=== PATIENT | female | born 1995 | race Caucasian/White ===

== ENCOUNTER 2017-05-23 11:35 | Emergency (ER) | payer BC ==
--- NOTE | 2017-05-23 11:59 | EDPHY ---
H & P Stated Complaint: ear pain, sinus pressure Time Seen by Provider: 05/23/17 11:46 HPI/ROS: CHIEF COMPLAINT: Continued bilateral otalgia HISTORY OF PRESENT ILLNESS: 22-year-old immunocompetent female diagnosed 4 days ago with bilateral otitis media started on amoxicillin. She comes to the ER noting continued symptoms, fever, chills, 1 episode of vomiting this morning without abdominal pain. Bowel movements normal. No chest pain. No dyspnea. No nuchal rigidity. PRIMARY CARE PROVIDER: REVIEW OF SYSTEMS: A ten point review of systems was performed and is negative with the exception of the items mentioned in the HPI PAST MEDICAL & SURGICAL HISTORY: No pertinent medical or surgical history SOCIAL HISTORY: Nonsmoker, student PHYSICAL EXAM (Prior to examination, patient consented to physical exam, hands were washed and my usual and customary physical exam procedures followed) 1) GENERAL: Well-developed, well-nourished, alert and oriented. Appears nontoxic. 2) HEAD: Normocephalic, atraumatic 3) HEENT: Pupils equal, round, reactive to light bilaterally. Sclera anicteric. Nasopharynx, oropharynx, clear, no lesions. Dry mucous membranes ears bilaterally with bulging erythematous tympanic membrane with effusion noted. No evidence of of perforation. No evidence of otitis externa bilaterally. Bilateral mastoid nontender non boggy. 4) NECK: Full range of motion, no meningeal signs. No adenopathy 5) LUNGS: Clear auscultation bilaterally, no wheezes, no rhonchi, no retractions. 6) HEART: Regular rate and rhythm, no murmur, no heave, no gallop. 7) ABDOMEN: No guarding, no rebound, no focal tenderness, negative McBurney's, negative Zelaya's, negative Rovsing's, negative peritoneal sign, 8) MUSCULOSKELETAL: Moving all extremities, no focal areas of tenderness, no obvious trauma. No peripheral edema or discoloration. 9) BACK: No CVA tenderness, no midline vertebral tenderness, no fluctuance, no step-off, no obvious trauma, no visual or palpable abnormality. 10) SKIN: No rash, no petechiae. 11) Psychiatric: Patient is oriented X 3, there is no agitation. DIFFERENTIAL DIAGNOSIS: In no particular include but limited to otitis media, mastoiditis, influenza, first-line antibiotic therapy failure to amoxicillin for otitis media ] - Personal History LMP (Females 10-55): 22-28 Days Ago Current Tetanus/Diphtheria Vaccine: Yes Current Tetanus Diphtheria and Acellular Pertussis (TDAP): Yes - Medical/Surgical History Hx Asthma: Yes Hx Chronic Respiratory Disease: No Hx Diabetes: No Hx Cardiac Disease: No Hx Renal Disease: No Hx Cirrhosis: No Hx Alcoholism: No Hx HIV/AIDS: No Hx Splenectomy or Spleen Trauma: No Other PMH: sinus infection, asthma, labiaplasty - Social History Smoking Status: Never smoked Constitutional: Initial Vital Signs Temperature (C) 37.4 C 05/23/17 11:40 Heart Rate 135 H 05/23/17 11:40 Respiratory Rate 24 H 05/23/17 11:40 Blood Pressure 126/97 H 05/23/17 11:40 O2 Sat (%) 94 05/23/17 11:40 O2 Delivery Mode Room Air Allergies/Adverse Reactions: No Known Allergies Allergy (Unverified 05/23/17 11:38) Home Medications: Medication Instructions Recorded Amoxicillin 05/23/17 Amoxicillin/Clavulanate Pot 875 mg PO BID #14 tab 05/23/17 [Augmentin 875 mg tab] Hydrocodone/APAP 5/325 [[place] 1 tab PO Q6 PRN #7 tab 05/23/17 5/325 (RX)] Microgestin 05/23/17 Sertraline HCl 05/23/17 Medical Decision Making ED Course/Re-evaluation: 11:56 a.m.: This patient has evidence of continued bilateral otitis media, left greater than right. No evidence of perforation. No evidence of mastoiditis. She has been on amoxicillin for 4 days and notes no relief in symptoms. I recommended transitioning to Augmentin. Here in emergency department she was noted to be tachycardic, afebrile. We discussed possible concomitant influenza, in the presence of influenza vaccination. Dip urinalysis is negative for leukocytes and nitrates. 110 p.m.: Patient has been given IV hydration, heart rate currently in the 70s to 80s. She is feeling improvement with IV Toradol. I re-examined her at this point, she is smiling, appears improved. I do not think that hospitalization or emergent ENT consultation is indicated. Will transition from amoxicillin to Augmentin. We possibility of concomitant influenza . Will hold on influenza testing. Recommend 24 hour follow up with ENT and given this follow-up information. She feels comfortable with this plan. Care of patient under supervision of secondary supervising physician Dr Terry Rivera with whom I discussed case. - Data Points Laboratory Results: Laboratory Results 05/23/17 12:03 05/23/17 12:03 05/23/17 05/23/17 05/23/17 12:03 12:03 12:03 WBC 14.09 10^3/uL H 10^3/uL (3.80-9.50) RBC 4.81 10^6/uL 10^6/uL (4.18-5.33) Hgb 15.0 g/dL g/dL (12.6-16.3) Hct 42.3 % % (38.0-47.0) MCV 87.9 fL fL (81.5-99.8) MCH 31.2 pg pg (27.9-34.1) MCHC 35.5 g/dL g/dL (32.4-36.7) RDW 12.8 % % (11.5-15.2) Plt Count 262 10^3/uL 10^3/uL (150-400) MPV 9.2 fL fL (8.7-11.7) Neut % (Auto) 80.4 % H % (39.3-74.2) Lymph % (Auto) 9.6 % L % (15.0-45.0) [place] % (Auto) 8.9 % % (4.5-13.0) Eos % (Auto) 0.3 % L % (0.6-7.6) Baso % (Auto) 0.4 % % (0.3-1.7) Nucleat RBC Rel Count 0.0 % % (0.0-0.2) Absolute Neuts (auto) 11.32 10^3/uL H 10^3/uL (1.70-6.50) Absolute Lymphs (auto) 1.35 10^3/uL 10^3/uL (1.00-3.00) Absolute Monos (auto) 1.26 10^3/uL H 10^3/uL (0.30-0.80) Absolute Eos (auto) 0.04 10^3/uL 10^3/uL (0.03-0.40) Absolute Basos (auto) 0.06 10^3/uL 10^3/uL (0.02-0.10) Absolute Nucleated RBC 0.00 10^3/uL 10^3/uL (0-0.01) Immature Gran % 0.4 % % (0.0-1.1) Immature Gran # 0.06 10^3/uL 10^3/uL (0.00-0.10) Sodium 143 mEq/L mEq/L (135-145) Potassium 4.2 mEq/L mEq/L (3.5-5.2) Chloride 108 mEq/L mEq/L (97-110) Carbon Dioxide 17 mEq/l L mEq/l (22-31) Anion Gap 18 mEq/L H mEq/L (8-16) BUN 6 mg/dL L mg/dL (7-23) Creatinine 0.6 mg/dL mg/dL (0.6-1.0) Estimated GFR > 60 Glucose 85 mg/dL mg/dL (70-100) Calcium 9.5 mg/dL mg/dL (8.5-10.4) Beta HCG, Qual NEGATIVE Medications Given: Discontinued Medications Sodium Chloride (Ns) 1,000 mls @ 0 mls/hr IV ONCE ONE PRN Reason: Wide Open Stop: 05/23/17 12:09 Last Admin: 05/23/17 12:09 Dose: 1,000 mls Ketorolac Tromethamine (Toradol) 30 mg IVP EDNOW ONE Stop: 05/23/17 12:08 Last Admin: 05/23/17 12:12 Dose: 30 mg Departure - Departure Disposition: Home, Routine, Self-Care Clinical Impression: Otitis media Qualifiers: Otitis media type: unspecified Chronicity: subacute Qualified Code(s): H66.90 - Otitis media, unspecified, unspecified ear Condition: Good Instructions: Ear Infection (ED) Additional Instructions: Return to the ER immediately if you feel new or worsening symptoms. Referrals: Miguel Kwong MD [Medical Doctor] - 1-2 days without fail (Dr. Miguel Kwong is an ear nose and throat doctor) Prescriptions: Amoxicillin/Clavulanate Pot [Augmentin 875 mg tab] 875 mg PO BID #14 tab Hydrocodone/APAP 5/325 [[place] 5/325 (RX)] 1 tab PO Q6 PRN #7 tab PRN Reason: Pain, Severe
[2017-05-23] MEDS ORDERED: KETOROLAC 30 MG/1 ML SDV IVP ONE (12:07)
[2017-05-23] MEDS ORDERED: NS 1,000 ML IV ONE (12:08)
[2017-05-23 12:12] VITALS: RESP 18; O2SAT 97
[2017-05-23 12:41] VITALS: BP 119/79; PULSE 101; TEMP 99.6
[2017-05-23 12:42] LABS: PLATELET COUNT 262 10^3/uL (150-400)
== END 2017-05-23 14:10 | disposition home or self-care (01) ==
DX: H66.93 Otitis media, unspecified, bilateral (principal); J45.909 Unspecified asthma, uncomplicated; R11.10 Vomiting, unspecified
CPT/HCPCS: 96374; J1885

== ENCOUNTER 2017-05-25 10:30 | Emergency (ER) | payer BC ==
[2017-05-25 10:43] VITALS: RESP 18
--- NOTE | 2017-05-25 12:54 | EDPHY ---
H & P Time Seen by Provider: 05/25/17 12:23 HPI/ROS: CHIEF COMPLAINT: Right ear pain, sinus congestion, conjunctivitis HISTORY OF PRESENT ILLNESS: 22-year-old female presents to the emergency department with ongoing right ear pain. She was seen in the emergency department just a few days ago and diagnosed with right otitis media. She was initially taking Augmentin for 5 days in the and was changed to Ceftin. She has been taking this as prescribed. Denies fever. She does were contacts and states that she has not slept in her contacts. When she woke up this morning, she noted injection to both eyes with purulent drainage. No chest pain or difficulty breathing. No recent travel. REVIEW OF SYSTEMS: Constitutional: No fever, no chills. Eyes: Mattering bilateral eyes. No double or blurry vision. ENT: Right ear pain. No sore throat. Respiratory: No cough, no shortness of breath. Cardiac: No chest pain. Gastrointestinal: No abdominal pain, vomiting or diarrhea. Genitourinary: No dysuria. Musculoskeletal: No neck or back pain. Skin: No rashes. Neurological: No headache. Past Medical/Surgical History: Labiaplasty Social History: [employer] student Smoking Status: Never smoked Physical Exam: General Appearance: Alert, no distress. Afebrile. No apparent distress. Eyes: Pupils equal and round. Extraocular motions are all intact. Bilateral conjunctival injection noted. Small exudate. ENT: Mouth: Mucous membranes moist. A mild erythema and clear fluid noted to the right tympanic membrane. Tympanic membrane is intact with no evidence of perforation. Bony landmarks are present. Left ear is clear. Respiratory: No wheezing, rhonchi, or rales, lungs are clear to auscultation. Cardiovascular: Regular rate and rhythm. Gastrointestinal: Abdomen is soft and nontender, no masses, no rebound or guarding, bowel sounds normal. Neurological: Alert and oriented x 3, cranial nerves II through XII grossly intact Skin: Warm and dry, no rashes. Musculoskeletal: Nontender to palpate along the cervical, thoracic or lumbar spine. Neck is supple. Extremities: Full range of motion and no peripheral edema. Psychiatric: Patient is oriented X 3, there is no agitation. Constitutional: Initial Vital Signs Temperature (C) 36.5 C 05/25/17 10:40 Heart Rate 94 05/25/17 10:40 Respiratory Rate 18 01/23/18 10:40 Blood Pressure 140/77 H 05/25/17 10:40 O2 Sat (%) 96 05/25/17 10:40 O2 Delivery Mode Room Air Allergies/Adverse Reactions: No Known Allergies Allergy (Verified 05/25/17 10:39) Home Medications: Medication Instructions Recorded Cefuroxime Axetil [Ceftin (*)] 500 mg PO BID 7 Days tab 05/23/17 Microgestin 05/23/17 Sertraline HCl 05/23/17 Ofloxacin 0.3% [Ocuflox] 1 - 2 drops EACHEYE QID 7 Days btl 05/25/17 predniSONE 60 mg PO DAILY 5 Days tab 05/25/17 Medical Decision Making ED Course/Re-evaluation: 22-year-old female presents to the emergency department with bilateral conjunctival injection recheck of her right ear. I encouraged the patient to continue taking antibiotics as prescribed. She is scheduled to see ENT tomorrow. She was given prednisone for station tube dysfunction. She was also encouraged to use Afrin and Mucinex [id number]. On examination patient had conjunctivitis. She does wear contacts. She will be treated with Ocuflox. She was given ophthalmology referral for symptoms do not improved. She was instructed to return to the emergency department if she had any chest or change in symptoms or felt worse. Differential Diagnosis: Including but not limited to serous otitis, station tube dysfunction, otitis media, conjunctivitis Departure - Departure Disposition: Home, Routine, Self-Care Clinical Impression: Sinusitis Qualifiers: Sinusitis location: maxillary Chronicity: acute Recurrence: non-recurrent Qualified Code(s): J01.00 - Acute maxillary sinusitis, unspecified Conjunctivitis Qualifiers: Conjunctivitis type: acute Acute conjunctivitis type: bacterial Laterality: bilateral Qualified Code(s): H10.33 - Unspecified acute conjunctivitis, bilateral Right acute serous otitis media Qualifiers: Recurrence: not specified as recurrent Qualified Code(s): H65.01 - Acute serous otitis media, right ear Condition: Good Instructions: Sinusitis (ED), Serous Otitis Media (ED), Conjunctivitis (ED) Additional Instructions: Continue antibiotics as prescribed. Ocuflox ophthalmic drops 2 drops 4 times daily to both eyes for 1 week. Do not wear contacts for 1 week and until your infection has cleared. Mucinex, guaifenesin, 600-1200 mg twice daily with a large amount of liquids. Afrin nasal spray as discussed for 2-3 days. Prednisone daily x5 days. You on, wiggle jaw, sometimes chewing gum can also help. Ibuprofen 600 mg every 8 hr as needed for pain. Keep scheduled appointment with ENT tomorrow. Referrals: John Amaral MD [Medical Doctor] - 1-2 days without fail (Industrial Sales Engineer on- call) Kevin Cardona MD [Medical Doctor] - As per Instructions (ENT on-call) Prescriptions: Ofloxacin 0.3% [Ocuflox] 1 - 2 drops EACHEYE QID 7 Days btl predniSONE 60 mg PO DAILY 5 Days tab
[2017-05-25 13:05] VITALS: BP 135/78; PULSE 78; TEMP 98.4; O2SAT 95
== END 2017-05-25 13:00 | disposition home or self-care (01) ==
DX: H65.01 Acute serous otitis media, right ear (principal); J01.00 Acute maxillary sinusitis, unspecified; H10.33 Unspecified acute conjunctivitis, bilateral

== ENCOUNTER 2018-07-16 11:05 | Emergency (ER) | payer BC ==
[2018-07-16] MEDS ORDERED: LIDOCAINE 2% VISCOUS 15 ML UDCUP PO ONE (11:44)
[2018-07-16] MEDS ORDERED: MAG HYDROX/AL HYDROX/SIMETH 30 ML UDCUP PO ONE (11:44)
[2018-07-16] MEDS ORDERED: FAMOTIDINE 20 MG TAB PO ONE (11:44)
[2018-07-16] MEDS ORDERED: HYOSCYAMINE SULFATE 0.125 MG TAB PO ONE (11:44)
--- NOTE | 2018-07-16 11:44 | EDPHY ---
H & P Stated Complaint: upper abd pain x 2 hours nausea - Personal History LMP (Females 10-55): 1-7 Days Ago - Medical/Surgical History Hx Asthma: Yes Hx Chronic Respiratory Disease: No Hx Diabetes: No Hx Cardiac Disease: No Hx Renal Disease: No Hx Cirrhosis: No Hx Alcoholism: No Hx HIV/AIDS: No Hx Splenectomy or Spleen Trauma: No Other PMH: sinus infection, asthma, bipolar - Social History Smoking Status: Never smoked Time Seen by Provider: 07/16/18 11:35 HPI/ROS: CHIEF COMPLAINT: Epigastric pain since this morning HISTORY OF PRESENT ILLNESS: 23-year-old female generally healthy complaining of epigastric pain which she woke with this morning. Last night she had a few drinks of alcohol. No nausea or vomiting last night or this morning however she notes epigastric pain without radiation. No radiation to her back. No diarrhea. No dyspnea. No chest pain. No history of chronic NSAID use. No melena or hematochezia PRIMARY CARE PROVIDER: REVIEW OF SYSTEMS: 10 systems reviewed and negative with the exception of the elements mentioned in the history of present illness PAST MEDICAL & SURGICAL HISTORY: Bipolar disorder SOCIAL HISTORY:Few drinks of alcohol last evening PHYSICAL EXAM (Prior to examination, patient consented to physical exam, hands were washed and my usual and customary physical exam procedures followed) 1) GENERAL: Well-developed, well-nourished, alert and oriented. Appears to be in no acute distress. 2) HEAD: Normocephalic, atraumatic 3) HEENT: Pupils equal, round, reactive to light bilaterally. Sclera anicteric. Nasopharynx, oropharynx, clear, no lesions. Moist Mucous membranes. 4) NECK: Full range of motion, no meningeal signs. 5) LUNGS: Clear auscultation bilaterally, no wheezes, no rhonchi, no retractions. 6) HEART: Regular rate and rhythm, no murmur, no heave, no gallop. 7) ABDOMEN: No guarding, tender to palpation epigastrium. No palpable or pulsatile mass. Negative McBurney's, negative Zelaya's, negative Rovsing's, negative peritoneal sign, 8) MUSCULOSKELETAL: Moving all extremities, no focal areas of tenderness, no obvious trauma. No peripheral edema or discoloration. 9) BACK: No CVA tenderness, no midline vertebral tenderness, no fluctuance, no step-off, no obvious trauma, no visual or palpable abnormality. 10) SKIN: No rash, no petechiae. 11) Psychiatric: Patient is oriented X 3, there is no agitation. DIFFERENTIAL DIAGNOSIS: In no particular order, including but not limited to biliary colic, cholecystitis, peptic ulcer disease, pancreatitis, and gastroenteritis. This is a partial list of diagnoses considered. These considerations are based on history, physical exam, past history and reassessment. (Jyoti Pearce) Constitutional: Initial Vital Signs Temperature (C) 36.0 C 07/16/18 11:10 Heart Rate 90 07/16/18 11:10 Respiratory Rate 16 07/16/18 11:10 Blood Pressure 126/74 H 07/16/18 11:10 O2 Sat (%) 97 07/16/18 11:10 O2 Delivery Mode Room Air Allergies/Adverse Reactions: No Known Allergies Allergy (Verified 05/25/17 10:39) Home Medications: Medication Instructions Recorded Adderall 7.5 mg Tablet 07/16/18 Famotidine [Pepcid] 20 mg PO BID #10 tablet 07/16/18 Gabapentin 07/16/18 LaMICtal 07/16/18 Ortho Tri-Cyclen 28 Tablet 07/16/18 Pantoprazole Sodium [Protonix 40mg 40 mg PO DAILY #30 tab 07/16/18 (RX)] VYVANSE 07/16/18 Medical Decision Making - Diagnostics Imaging Results: Imaging Impressions Abdomen Ultrasound 07/16/18 12:23 Impression: Normal. No cholelithiasis, biliary dilation, hydronephrosis or free fluid. Findings discussed with Emergency Department physician it administrative assistantJyoti at 07/16/2018 13:28. Images reviewed myself (Jyoti Pearce) ED Course/Re-evaluation: 12:20 p.m.: Re-evaluation. Given GI cocktail. Notes mild improvement in symptoms. I re-examined the patient. She is tender to palpation right upper quadrant. Will obtain gallbladder ultrasonography. 1:30 p.m.: Re-evaluation. Discussed with patient her negative right upper quadrant ultrasound. We discussed limitations of the ultrasound. At this time doubt acute cholecystitis, doubt acute pancreatitis. Doubt acute surgical abdominal pathology. I think the patient can be discharged home. Recommended avoiding alcohol, or discussed dietary recommendations, initiation of PPI and Pepcid and close follow up with Gastroenterology. She feels comfortable being discharged. Patient feels comfortable being discharged. All questions and concerns addressed by myself. Patient given my usual and customary discharge precautions and instructions regarding their clinical impression. Care of patient under supervision of secondary supervising physician Dr Kevin Mark. ( [facility]) I did not see this patient while she was in the emergency department. However her care was discussed with the PA while the patient was in the department. I agree with treatment plan and management (Kevin Mark) - Data Points Laboratory Results: Laboratory Results 07/16/18 11:30 07/16/18 11:30 07/16/18 07/16/18 07/16/18 11:30 11:30 11:30 WBC 10.47 10^3/uL H 10^3/uL (3.80-9.50) RBC 4.93 10^6/uL 10^6/uL (4.18-5.33) Hgb 15.2 g/dL g/dL (12.6-16.3) Hct 44.0 % % (38.0-47.0) MCV 89.2 fL fL (81.5-99.8) MCH 30.8 pg pg (27.9-34.1) MCHC 34.5 g/dL g/dL (32.4-36.7) RDW 12.2 % % (11.5-15.2) Plt Count 277 10^3/uL 10^3/uL (150-400) MPV 8.9 fL fL (8.7-11.7) Neut % (Auto) 77.6 % H % (39.3-74.2) Lymph % (Auto) 15.5 % % (15.0-45.0) [place] % (Auto) 4.1 % L % (4.5-13.0) Eos % (Auto) 1.9 % % (0.6-7.6) Baso % (Auto) 0.6 % % (0.3-1.7) Nucleat RBC Rel Count 0.0 % % (0.0-0.2) Absolute Neuts (auto) 8.13 10^3/uL H 10^3/uL (1.70-6.50) Absolute Lymphs (auto) 1.62 10^3/uL 10^3/uL (1.00-3.00) Absolute Monos (auto) 0.43 10^3/uL 10^3/uL (0.30-0.80) Absolute Eos (auto) 0.20 10^3/uL 10^3/uL (0.03-0.40) Absolute Basos (auto) 0.06 10^3/uL 10^3/uL (0.02-0.10) Absolute Nucleated RBC 0.00 10^3/uL 10^3/uL (0-0.01) Immature Gran % 0.3 % % (0.0-1.1) Immature Gran # 0.03 10^3/uL 10^3/uL (0.00-0.10) Sodium 141 mEq/L mEq/L (135-145) Potassium 4.2 mEq/L mEq/L (3.5-5.2) Chloride 110 mEq/L mEq/L (97-110) Carbon Dioxide 21 mEq/l L mEq/l (22-31) Anion Gap 10 mEq/L mEq/L (6-14) BUN 13 mg/dL mg/dL (7-23) Creatinine 0.7 mg/dL mg/dL (0.6-1.0) Estimated GFR > 60 Glucose 84 mg/dL mg/dL (70-100) Calcium 9.0 mg/dL mg/dL (8.5-10.4) Total Bilirubin 0.5 mg/dL mg/dL (0.1-1.4) Conjugated Bilirubin 0.3 mg/dL mg/dL (0.0-0.5) Unconjugated Bilirubin 0.2 mg/dL mg/dL (0.0-1.1) AST 25 IU/L IU/L (14-46) ALT 31 IU/L IU/L (9-52) Alkaline Phosphatase 74 IU/L IU/L (38-126) Total Protein 6.8 g/dL g/dL (6.3-8.2) Albumin 4.1 g/dL g/dL (3.5-5.0) Lipase 70 IU/L IU/L (23-300) Beta HCG, Qual NEGATIVE Medications Given: Discontinued Medications Al Hydroxide/Mg Hydroxide (Maalox Susp) 30 ml PO ONCE ONE Stop: 07/16/18 11:45 Last Admin: 07/16/18 11:53 Dose: 30 ml Famotidine (Pepcid) 20 mg PO EDNOW ONE Stop: 07/16/18 11:45 Last Admin: 07/16/18 11:52 Dose: 20 mg Hyoscyamine Sulfate (Levsin, Hyomax-Sl) 0.25 mg PO ONCE ONE Stop: 07/16/18 11:45 Last Admin: 07/16/18 11:52 Dose: 0.25 mg Lidocaine (Lidocaine 2% Viscous) 15 ml PO ONCE ONE Stop: 07/16/18 11:45 Last Admin: 07/16/18 11:53 Dose: 15 ml Departure - Departure Disposition: Home, Routine, Self-Care Clinical Impression: Epigastric abdominal pain Condition: Good Instructions: Famotidine (By mouth), Pantoprazole (By mouth), Epigastric Pain ( ED) Additional Instructions: Seek immediate medical attention if you develop new or worsening symptoms, if you develop fevers, chills, inability to tolerate oral intake or any other symptoms that concerns you. Recommend you avoid alcohol, spicy foods, soda, caffeinated beverages. Referrals: Jory Ozuna MD [Medical Doctor] - 2-3 days, call for appt. Stand Alone Forms: Work Excuse Prescriptions: Famotidine [Pepcid] 20 mg PO BID #10 tablet Pantoprazole Sodium [Protonix 40mg (RX)] 40 mg PO DAILY #30 tab
[2018-07-16 11:50] LABS: PLATELET COUNT 277 10^3/uL (150-400)
[2018-07-16 13:57] VITALS: BP 130/67
== END 2018-07-16 13:56 | disposition home or self-care (01) ==
DX: R10.13 Epigastric pain (principal)